=== PATIENT | male | born 1980 | race Caucasian/White ===

== ENCOUNTER 2017-07-18 06:27 | Emergency (ER) | payer BC ==
[2017-07-18 06:38] VITALS: BP 145/102
[2017-07-18] MEDS ORDERED: Orphenadrine 100 MG Tab.ER PO STA (07:08)
[2017-07-18] MEDS ORDERED: Naproxen 500 MG Tab PO ONE (07:08)
--- NOTE | 2017-07-18 07:15 | EDM.PDOC ---
ED HPI GENERAL MEDICAL PROBLEM - General Chief Complaint: Back Pain or Injury Stated Complaint: BACK PAIN Time Seen by Provider: 07/18/17 06:42 Source of Information: Reports: Patient, RN Notes Reviewed History Limitations: Reports: No Limitations - History of Present Illness INITIAL COMMENTS - FREE TEXT/NARRATIVE: The patient states that he developed lower left back pain Monday afternoon, 07/16, after he pulled on a tractor, attempting to get it off a trailer. The pain is felt in his lower left back, his left buttock, and down the posterior aspect of his left thigh. He only feels the pain when he is sitting, turning over in bed, or walking. He has chronic left toe numbness, but no new tingling or numbness. He states that he saw a chiropractor yesterday afternoon, who performed an adjustment, but it did not help. The patient has a history of cervical disc disease, but no prior lower back injury. The patient's PCP is Dr. Cross, who has not been notified of this event. Patient has an appointment to see Dr. Cross on 07/21/2017. Lower Back Pain Score (Numeric/FACES): 10 - Related Data Allergies Allergy/AdvReac Type Severity Reaction Status Date / Time Penicillins Allergy Anaphylactic Verified 03/28/15 21:04 Shock Tetanus Vaccines and Toxoid Allergy Anaphylactic Verified 03/28/15 21:04 [Tetanus Vaccines & Toxoid] Shock Home Meds: Home Meds Naproxen 500 mg PO Q12H PRN #20 tablet 07/18/17 [Rx] Orphenadrine [Norflex] 1 tab PO Q12H #20 tab.er 07/18/17 [Rx] traMADol [Ultram] 1 tab PO DAILY PRN 07/18/17 [History] Past Medical History Musculoskeletal History: Reports: Other (See Below) (Cervical disc disease) - Past Surgical History HEENT Surgical History: Reports: Oral Surgery (Dental extractions) Neurological Surgical History: Reports: C-Spine (ACDF) Musculoskeletal Surgical History: Reports: Other (See Below) (Right hand reconstructive surgery) Social & Family History - Tobacco Use Smoking Status *Q: Heavy Tobacco Smoker Years of Tobacco use: 26 Packs/Tins Daily: 2 - Caffeine Use Caffeine Use: Reports: Coffee - Alcohol Use Alcohol Use History: Yes Alcohol Use Frequency: Daily - Recreational Drug Use Recreational Drug Use: No - Living Situation & Occupation Living situation: Reports: , with Spouse, with Family (3 kids) Occupation: Employed ([employer]) ED ROS GENERAL - Review of Systems Review Of Systems: See Below Constitutional: Reports: No Symptoms HEENT: Reports: No Symptoms Respiratory: Reports: No Symptoms Cardiovascular: Reports: No Symptoms Endocrine: Reports: No Symptoms GI/Abdominal: Reports: No Symptoms : Reports: No Symptoms Musculoskeletal: Reports: No Symptoms Skin: Reports: No Symptoms Neurological: Reports: No Symptoms Psychiatric: Reports: No Symptoms Hematologic/Lymphatic: Reports: No Symptoms Immunologic: Reports: No Symptoms ED EXAM,LOWER BACK PAIN/INJURY - Physical Exam Exam: See Below Exam Limited By: No Limitations General Appearance: Alert, WD/WN, No Apparent Distress Eye Exam: Bilateral Eye: Normal Inspection Ears: Normal External Exam, Hearing Grossly Normal Nose: Normal Inspection, No Blood Throat/Mouth: Normal Inspection, Normal Lips, Normal Voice, No Airway Compromise Head: Atraumatic, Normocephalic Neck: Normal Inspection, Full Range of Motion Respiratory/Chest: No Respiratory Distress, No Accessory Muscle Use, Rhonchi ( diffuse "smoker's lungs") Cardiovascular: Normal Peripheral Pulses, Regular Rate, Rhythm, No Gallop, No JVD, No Murmur, No Rub GI/Abdominal: Normal Bowel Sounds, Soft, Non-Tender, No Organomegaly, No Distention, No Abnormal Bruit, No Mass (Male) Exam: Deferred Rectal (Males) Exam: Deferred Back Exam: Normal Inspection, Other (No visible abnormality to the patient's lower back, such as swelling, erythema, ecchymosis, or abrasion. No tenderness to palpation of the spinous processes. Minimal tenderness to palpation of the left sacroiliac area. No appreciable muscle spasm to the area. The patient is able to flex the spine to 45, extend to 10. He is able to tilt to the left to 10, to the right 20. He is able to twist to the left to 5, to the right 45. Normal unilateral knee bend. Straight leg raise to 30 on the left before causing lower back discomfort, without radiculopathy. Straight leg raise to 45 on the right before causing lower back strain without radiculopathy.) Extremities: Normal Inspection, Normal Range of Motion, No Pedal Edema, Normal Capillary Refill Neurological: Alert, No Motor/Sensory Deficits, Oriented x 3 Psychiatric: Normal Affect Skin Exam: Warm, Dry, Intact, Normal Color, No Rash Course - Vital Signs Last Recorded V/S: Last Vital Signs Temp 36.8 C 07/18/17 06:34 Pulse 92 07/18/17 06:34 Resp 18 07/18/17 06:34 BP 145/102 H 07/18/17 06:34 Pulse Ox 100 07/18/17 06:34 - Orders/Labs/Meds Meds: Medications Discontinued Medications Generic Name Dose Route Start Last Admin Trade Name Freq PRN Reason Stop Dose Admin Naproxen 500 mg 07/18/17 07:08 07/18/17 07:15 Naprosyn PO 07/18/17 07:09 500 mg ONETIME ONE Administration Orphenadrine Citrate 100 mg 07/18/17 07:08 07/18/17 07:15 Norflex PO 07/18/17 07:09 100 mg ONETIME STA Administration - Re-Assessments/Exams Free Text/Narrative Re-Assessment/Exam: 07/18/17 07:05 The patient's examination is not consistent with a herniated intervertebral disc. Is more likely that the patient has strained a lower back muscle, which may be causing some local nerve irritation. Am therefore not recommending steroids, instead, I am recommending a nonsteroidal, such as naproxen, and a muscle relaxant, such as Norflex. I am recommending that he stay active, swimming if possible. The patient is requesting a note for work, which I will extend through Monday , 07/22/2017. The patient will be following up with Dr. Cross on Monday, 07/21. Departure - Departure Time of Disposition: 07:09 Disposition: Home, Self-Care 01 Condition: Good Clinical Impression: Low back pain - Discharge Information Prescriptions: Naproxen 500 mg PO Q12H PRN #20 tablet PRN Reason: Pain Orphenadrine [Norflex] 1 tab PO Q12H #20 tab.er Instructions: Back Pain, Adult, [id number] Referrals: Hammad Cross MD [Primary Care Provider] - Forms: ED Department Discharge, ED Return to Work/School Form Additional Instructions: You were seen in the emergency room for low back pain going down your left thigh. On examination, it appears to have strained your lower back, which may be irritating some nerves. You have been started on the anti-inflammatory medicine naproxen. Take one tablet every 12 hours, with food, as prescribed. You have been started on the muscle relaxant Norflex. Take one tablet every 12 hours, as prescribed. It is important that you stay active. Swimming is best, but if you cannot swim, walking is good. Try to avoid flexing and twisting your spine. Follow-up with Dr. Cross on 07/21/2017, as previously scheduled. If any other problems, please do not hesitate to return to the ER.
== END 2017-07-18 07:34 | disposition home or self-care (01) ==
LOC: JD.ED 06:27
DX: M54.5 Low back pain (principal); F17.210 Nicotine dependence, cigarettes, uncomplicated; Z98.890 Other specified postprocedural states; Z79.899 Other long term (current) drug therapy; Z88.0 Allergy status to penicillin; Z88.7 Allergy status to serum and vaccine
CPT/HCPCS: 99283; A9270

== ENCOUNTER 2021-06-04 05:59 | Emergency (ER) | payer BC ==
[2021-06-04] MEDS ORDERED: Ondansetron 4 MG/2 ML SDV IVPUSH ONE ×2 (06:42→09:25)
[2021-06-04] MEDS ORDERED: HYDROmorphone 1 MG/ML Syringe IVPUSH STA (06:42)
[2021-06-04] MEDS ORDERED: Sodium Chloride 0.9% 1,000 ML IV SCH (06:45)
--- NOTE | 2021-06-04 06:54 | EDM.PDOC ---
<Jim Zuñiga - Last Filed: 06/04/21 07:45> ED HPI GENERAL MEDICAL PROBLEM - General Chief Complaint: Gastrointestinal Problem Stated Complaint: UPPER ABDOMINAL PAIN/SOB Time Seen by Provider: 06/04/21 06:14 Source of Information: Reports: Patient, Family () History Limitations: Reports: No Limitations - History of Present Illness INITIAL COMMENTS - FREE TEXT/NARRATIVE: Mr. Abdi is a very pleasant 41-year-old gentleman who now presents the ED stating that he was woken from sleep around 21:00 last night with sudden-onset sharp/stabbing pain felt in his left upper quadrant, along with nausea and vomiting. The pain does not radiate. He states that the pain waxes and wanes. He has not identified any modifiers other than vomiting, which gives him some temporary relief of his symptoms. The patient states that his last bowel movement was watery diarrhea around 4:00 this morning. He states that he has not been passing gas. No recent fever or urinary symptoms. The patient states that he has not taken any [id number] or home remedies since the onset of his symptoms. No prior similar symptoms. The patient acknowledges that he drinks 8-10 beers a day, and smokes marijuana on a near-daily basis. He has also smoked 2 packs of cigarettes a day since he was 11 years old. Here in the ED this morning, the patient's initial BP is found to be elevated at 170/111, otherwise, he is hemodynamically stable, afebrile, saturating 100% on room air. He appears to be somewhat uncomfortable and anxious, but in no acute distress. Prior to last night, the patient denies having a recent fever, chills, sore throat, ear pain, nasal or sinus congestion, cough, dyspnea, chest pain, palpitations, nausea, vomiting, constipation, diarrhea, abdominal pain, urinary symptoms, recent weight gain or weight loss, recent bloody bowel movements or black bowel movements, recent joint aches, headaches, or rashes. The patient does not have a PCP. He has not received a COVID vaccination. Epigastric Pain Score (Numeric/FACES): 8 - Related Data Allergies Allergy/AdvReac Type Severity Reaction Status Date / Time bee venom protein (honey bee) Allergy Anaphylactic Verified 06/04/21 06:14 Shock Penicillins Allergy Anaphylactic Verified 03/28/15 21:04 Shock Tetanus Vaccines and Toxoid Allergy Anaphylactic Verified 03/28/15 21:04 [Tetanus Vaccines & Toxoid] Shock Home Meds: Home Meds Ondansetron [Zofran ODT] 4 mg PO Q6H PRN #7 tab.dis 06/04/21 [Rx] Past Medical History Psychiatric History: Reports: Addiction (alcohol, opiates) - Past Surgical History HEENT Surgical History: Reports: Oral Surgery (dental extractions) Neurological Surgical History: Reports: C-Spine (ACDF) Musculoskeletal Surgical History: Reports: Other (See Below) (Right hand reconstruction) Social & Family History - Tobacco Use Tobacco Use Status *Q: Heavy Tobacco User Years of Tobacco use: 30 Packs/Tins Daily: 2 Tobacco Use Comment: Started smoking 1990 - Caffeine Use Caffeine Use: Reports: Coffee - Alcohol Use Alcohol Use History: Yes Days Per Week of Alcohol Use: 7 Number of Drinks Per Day: 10 Total Drinks Per Week: 70 Alcohol Use Frequency: Daily - Recreational Drug Use Recreational Drug Use: Yes Drug Use in Last 12 Months: Yes Recreational Drug Type: Reports: Marijuana/Hashish (smokes daily or near-daily), Other (see below) (Opiates) - Living Situation & Occupation Living situation: Reports: , with Spouse, with Family (2 kids) 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 ED EXAM, GI/ABD - Physical Exam Exam: See Below Exam Limited By: No Limitations General Appearance: Alert, WD/WN, No Apparent Distress Eyes: Bilateral: Normal Appearance, EOMI Ears: Normal External Exam, Hearing Grossly Normal Nose: Normal Inspection Throat/Mouth: Normal Inspection, Normal Lips, Normal Voice, No Airway Compromise Head: Atraumatic, Normocephalic Neck: Normal Inspection, Full Range of Motion Respiratory/Chest: No Respiratory Distress, Lungs Clear, Normal Breath Sounds, No Accessory Muscle Use Cardiovascular: Normal Peripheral Pulses, Regular Rate, Rhythm, No Edema, No Gallop, No JVD, No Murmur, No Rub GI/Abdominal Exam: Normal Bowel Sounds, Soft, No Organomegaly, No Distention, No Abnormal Bruit, No Mass, Tender (Lightly in the right upper quadrant, predominantly in the epigastrium and left upper quadrant. Nontender elsewhere.) Back Exam: Normal Inspection, Full Range of Motion. No: CVA Tenderness (L), CVA Tenderness (R) Extremities: Normal Inspection, Normal Range of Motion, No Pedal Edema, Normal Capillary Refill Neurological: Alert, Oriented, Normal Cognition, No Motor/Sensory Deficits Psychiatric: Normal Affect Skin Exam: Warm, Dry, Intact, Normal Color, No Rash Course - Re-Assessments/Exams Free Text/Narrative Re-Assessment/Exam: 06/04/21 06:44 As above, the patient was woken from sleep around 21:00 last night with sharp/stabbing left upper quadrant abdominal pain that has been waxing and waning since. He has associated nausea, and his pain is at least temporarily improved with vomiting. He states that he had some watery diarrhea around 4:00 this morning, but that he has not had any flatus. No recent fever or urinary symptoms. On examination, the patient has slight right upper quadrant tenderness, with the majority of his tenderness felt in the epigastric and left upper quadrant area. Essentially nontender elsewhere. Normoactive bowel sounds. My suspicion for pancreatitis is very high, particularly given his heavy drinking, although the differential diagnosis includes a small bowel obstruction, a perforated gastric ulcer, gastritis, or even a very unusual presentation of a kidney stone. I have ordered a work-up that includes several blood tests, a swab for the SARS-CoV-2 virus (in case the patient needs to be admitted or transferred), and a CT of his abdomen and pelvis with oral and IV contrast. In the meantime, the patient will be given some IV Dilaudid, IV Zofran, and IV fluid. 06/04/21 06:58 Notified by Qi MCGEE that the patient would prefer to not have Dilaudid, since he apparently has a history of opiate abuse. He prefers Toradol. He denied drug use other than marijuana when I directly asked him. Nevertheless, I have canceled the IV Dilaudid and ordered Toradol instead. 06/04/21 07:45 The patient's CBC is remarkable for an H/H mildly elevated at 18.4/51.9, with the remainder of his CBC being unremarkable. His CMP is remarkable for slight hyperglycemia of 119, with the remainder of his CMP being unremarkable. His lipase level is within normal limits at 105. Results of his swab for the SARS-CoV-[address] scan of his abdomen and pelvis are still pending. Case discussed with Dr. Sánchez, and care of the patient turned over to him at this time, for change of shift. Departure - Departure Disposition: Home, Self-Care 01 Clinical Impression: Vomiting Abdominal pain Qualifiers: Abdominal location: upper abdomen, unspecified Qualified Code(s): R10.10 - Upper abdominal pain, unspecified - Discharge Information Prescriptions: Ondansetron [Zofran ODT] 4 mg PO Q6H PRN #7 tab.dis PRN Reason: Nausea/Vomiting Instructions: Nausea and Vomiting, Adult, [id number], Abdominal Pain, Adult, [id number] Referrals: PCP,None [Primary Care Provider] - Forms: ED Department Discharge Additional Instructions: Clear liquids until this evening, than very careful bland diet, small amounts of food only at a time as tolerated. Zofran if needed for further nausea or vomiting. Prescription has been sent to [facility] located at the [facility] grocery store. Sepsis Event Note (ED) - Evaluation Sepsis Screening Result: No Definite Risk <Mao Sánchez - Last Filed: 06/04/21 11:44> Course - Vital Signs Last Recorded V/S: Last Vital Signs Temp 98.1 F 06/04/21 10:13 Pulse 59 L 06/04/21 11:30 Resp 16 06/04/21 11:30 BP 162/99 H 06/04/21 11:30 Pulse Ox 98 06/04/21 11:30 - Orders/Labs/Meds Orders: Active Orders 24 hr Category Date Time Status Sodium Chloride 0.9% [Normal Saline] 1,000 ml Med 06/04/21 06:45 Active IV ASDIRECTED Sodium Chloride 0.9% [Saline Flush] Med 06/04/21 07:29 Active 10 ml FLUSH ONETIME PRN Medication Orders Sodium Chloride (Normal Saline) 1,000 mls @ 150 mls/hr IV ASDIRECTED PREETI Last Infusion: 06/04/21 09:35 Dose: 999 mls/hr Documented by: Admin: 06/04/21 06:54 Dose: 150 mls/hr Documented by: TARAH Sodium Chloride (Sodium Chloride 0.9% 10 Ml Syringe) 10 ml FLUSH ONETIME PRN PRN Reason: IV FLUSH Last Admin: 06/04/21 08:02 Dose: 10 ml Documented by: BLANKA Labs: Laboratory Tests 06/04/21 06/04/21 Range/Units 06:50 06:50 WBC 8.16 (4.23-9.07) K/mm3 RBC 5.46 (4.63-6.08) M/mm3 Hgb 18.4 H (13.7-17.5) gm/dl Hct 51.9 H (40.1-51.0) % MCV 95.1 H (79.0-92.2) fl MCH 33.7 H (25.7-32.2) pg MCHC 35.5 (32.2-35.5) g/dl RDW Std Deviation 44.0 H (35.1-43.9) fL Plt Count 271 (163-337) K/mm3 MPV 9.0 L (9.4-12.3) fl Neutrophils % (Manual) 69 H (40-60) % Band Neutrophils % 1 (0-10) % Lymphocytes % (Manual) 18 L (20-40) % Atypical Lymphs % 0 % Monocytes % (Manual) 11 H (2-10) % Eosinophils % (Manual) 0 L (0.8-7.0) % Basophils % (Manual) 1 (0.2-1.2) Platelet Estimate Adequate Plt Morphology Comment Normal RBC Morph Comment Normal Sodium 143 (136-145) mEq/L Potassium 3.2 L (3.5-5.1) mEq/L Chloride 100 (98-107) mEq/L Carbon Dioxide 32 (21-32) mEq/L Anion Gap 14.2 (5-15) BUN 11 (7-18) mg/dL Creatinine 0.8 (0.7-1.3) mg/dL Est Cr Clr Drug Dosing 118.75 mL/min Estimated GFR (MDRD) > 60 (>60) mL/min BUN/Creatinine Ratio 13.8 L (14-18) Glucose 119 H (70-99) mg/dL Calcium 9.3 (8.5-10.1) mg/dL Total Bilirubin 0.8 (0.2-1.0) mg/dL AST 27 (15-37) U/L ALT 35 (16-63) U/L Alkaline Phosphatase 75 (46-116) U/L Total Protein 8.0 (6.4-8.2) g/dl Albumin 4.4 (3.4-5.0) g/dl Globulin 3.6 gm/dL Albumin/Globulin Ratio 1.2 (1-2) Lipase 105 (73-393) U/L Meds: Medications Generic Name Dose Route Start Last Admin Trade Name Treyq PRN Reason Stop Dose Admin Sodium Chloride 1,000 mls @ 150 mls/hr 06/04/21 06:45 06/04/21 09:35 Normal Saline IV 999 mls/hr ASDIRECTED PREETI Infusion Sodium Chloride 10 ml 06/04/21 07:29 06/04/21 08:02 Sodium Chloride 0.9% 10 Ml Syringe FLUSH 10 ml ONETIME PRN Administration IV FLUSH Discontinued Medications Generic Name Dose Route Start Last Admin Trade Name Moody PRN Reason Stop Dose Admin Diatrizoate Meglum/Diatrizoate Sod 120 ml 06/04/21 07:29 06/04/21 08:03 Diatrizoate Meglumine/Diatrizoate Sodium 37% 120 Ml Bottle PO 06/04/21 07:30 30 ml ONETIME ONE Administration Hydromorphone HCl 1 mg 06/04/21 06:42 06/04/21 07:01 Hydromorphone 1 Mg/Ml Syringe IVPUSH 06/04/21 06:43 Not Given ONETIME STA Hydromorphone HCl 1 mg 06/04/21 10:34 06/04/21 10:38 Hydromorphone 1 Mg/Ml Syringe IVPUSH 06/04/21 10:35 1 mg ONETIME ONE Administration Promethazine HCl 12.5 mg/ 50.5 mls @ 100 mls/hr 06/04/21 10:34 06/04/21 10:49 Sodium Chloride IV 06/04/21 11:04 100 mls/hr ONETIME ONE Administration Iopamidol 100 ml 06/04/21 07:29 06/04/21 08:02 Iopamidol 612 Mg/Ml 100 Ml Bottle IVPUSH 06/04/21 07:30 100 ml ONETIME ONE Administration Ketorolac Tromethamine 30 mg 06/04/21 06:58 06/04/21 07:10 Ketorolac 30 Mg/Ml Sdv IVPUSH 06/04/21 06:59 30 mg ONETIME STA Administration Metoclopramide HCl 5 mg 06/04/21 07:44 06/04/21 07:50 Metoclopramide 10 Mg/2 Ml Sdv IVPUSH 06/04/21 07:45 5 mg ONETIME ONE Administration Metoclopramide HCl 5 mg 06/04/21 10:05 06/04/21 10:15 Metoclopramide 10 Mg/2 Ml Sdv IVPUSH 06/04/21 10:06 Not Given ONETIME ONE Metoclopramide HCl 5 mg 06/04/21 10:05 06/04/21 10:11 Metoclopramide 10 Mg/2 Ml Sdv IVPUSH 06/04/21 10:06 5 mg ONETIME ONE Administration Ondansetron HCl 4 mg 06/04/21 06:42 06/04/21 06:54 Ondansetron 4 Mg/2 Ml Sdv IVPUSH 06/04/21 06:43 4 mg ONETIME ONE Administration Ondansetron HCl 4 mg 06/04/21 09:25 06/04/21 09:31 Ondansetron 4 Mg/2 Ml Sdv IVPUSH 06/04/21 09:26 4 mg ONETIME ONE Administration - Re-Assessments/Exams Free Text/Narrative Re-Assessment/Exam: 06/04/21 09:35. Have assumed care from Flynn Zuñiga at change of shift. I agree with his hx and exam as documented. CT of abd does not show any acute upper abd pathology. There was no definite contrast L distal ureter but no evidence of obstruction. See Radiology report for details. I did verify with patient that his pain is upper abd, no lower abd, pelvic or L groin to suggest a stone problem. Pt's worry was to make sure he does not have pancreatitis. His lipase was normal. 10:25. Having more nausea and pain after getting up to the bathroom. Will give the 1 mg dilaudid not given before. Have given reglan IV, will give a 12.5 mg dose phenergan IV. Discharge instr. as documented. Departure - Departure Time of Disposition: 10:45 Condition: Fair Sepsis Event Note (ED) - Focused Exam Vital Signs: Vital Signs Temp Pulse Resp BP Pulse Ox 06/04/21 11:30 59 L 16 162/99 H 98 06/04/21 10:13 98.1 F 82 16 146/90 H 97 06/04/21 09:34 97.9 F 70 16 154/94 H 95 06/04/21 06:09 96.9 F 71 17 170/111 H 100
[2021-06-04] MEDS ORDERED: Ketorolac 30 MG/ML SDV IVPUSH STA (06:58)
[2021-06-04] MEDS ORDERED: Iopamidol 612 MG/ML 100 ML Bottle IVPUSH ONE (07:29)
[2021-06-04] MEDS ORDERED: Diatrizoate Meglumine/Diatrizoate Sodium 37% 120 ML Bottle PO ONE (07:29)
[2021-06-04] MEDS ORDERED: Sodium Chloride 0.9% 10 ML Syringe FLUSH PRN (07:29)
[2021-06-04] MEDS ORDERED: Metoclopramide 10 MG/2 ML SDV IVPUSH ONE ×3 (07:44→10:05)
--- NOTE | 2021-06-04 08:36 | CT ---
Addendum: Additional delayed images were obtained through the kidneys. Contrast is seen within the distal left ureter. Ureter is located very close to the calcifications thought to represent ureteral calculi but these calcifications are not located within the ureter. No ureteral dilatation is seen. Contrast is noted within the bladder. --- Addendum1 above dictated on [06/04/2021 09:34] by [Javi Connell, Mick Bradford] --- --- Addendum1 above signed on [06/04/2021 09:39] by [Javi Connell, Mick Bradford] --- --- Original report below dictated on [06/04/2021 08:31] by [Javi Connell, Mick Bradford] --- --- Original report below signed on [06/04/2021 08:34] by [Javi Connell, Mick Bradford] --- CT abdomen and pelvis Technique: Multiple axial sections were obtained from above the dome of the diaphragm inferiorly through the pubic symphysis. Intravenous and oral contrast were utilized. Delayed images were obtained through the bladder. Reconstructed coronal and sagittal images were also obtained. Comparison: No prior CT abdomen or pelvis study is available. Findings: Visualized lung bases show nothing acute. Liver contains no focal parenchymal abnormality. Gallbladder contains no calcified gallstones. Spleen size is normal. Several nodules are seen medial to the spleen compatible with accessory splenic tissue. Adrenal glands show no nodule. Pancreas shows no discrete abnormality. Kidneys show symmetric contrast enhancement without hydronephrosis or mass. Questionable calcification is noted within the distal left ureter which does not cause any ureteral dilatation. Delayed images show contrast within the right ureter and bladder. No definite contrast is seen within the distal left ureter. Abdominal aorta shows mild atherosclerotic change seen with no aneurysm. No retroperitoneal adenopathy or mesenteric abnormalities are seen. No pelvic mass or adenopathy is seen. Appendix is seen which is normal in size. No free fluid or inflammatory change is noted. Bone window settings were reviewed which show slight degenerative change at L5-S1. No acute osseous abnormality is appreciated. Impression: 1. Questionable calcification within the distal left ureter. Delayed images show no contrast within the distal left ureter. No ureteral dilatation is seen. Recommend delayed CT images of the abdomen and pelvis to further evaluate. 2. Other portions of the CT abdomen and pelvis study appear unremarkable. Diagnostic code #3 --- Addendum1 signed ---
[2021-06-04] MEDS ORDERED: Promethazine 12.5 MG in Sodium Chloride 0.9% 50 ML IV ONE (10:34)
[2021-06-04] MEDS ORDERED: HYDROmorphone 1 MG/ML Syringe IVPUSH ONE (10:34)
[2021-06-04 11:35] VITALS: BP 162/99; PULSE 59
== END 2021-06-04 11:30 | disposition home or self-care (01) ==
LOC: JD.ED 05:59
DX: R10.11 Right upper quadrant pain (principal); R10.12 Left upper quadrant pain; R10.811 Right upper quadrant abdominal tenderness; R10.13 Epigastric pain; R11.2 Nausea with vomiting, unspecified; Z88.0 Allergy status to penicillin; Z91.030 Bee allergy status; Z88.7 Allergy status to serum and vaccine; Z72.0 Tobacco use
CPT/HCPCS: 36415; 74177; 80053; 83690; 85007; 85027; 96365; 96375; 96376; 99284; J1170; J1885; J2405; J2550; J2765; J7030; Q9963; Q9967

== ENCOUNTER 2024-02-13 06:50 | Emergency (ER) | payer SELFPAY ==
[2024-02-13 07:18] VITALS: BP 147/77; PULSE 90
== END 2024-02-13 08:01 | disposition home or self-care (01) ==
LOC: JD.ED 06:50
DX: M75.101 Unspecified rotator cuff tear or rupture of right shoulder, not specified as traumatic (principal); Z91.030 Bee allergy status; Z88.0 Allergy status to penicillin; Z88.7 Allergy status to serum and vaccine
CPT/HCPCS: 99283

== ENCOUNTER 2024-03-25 12:36 | Emergency (ER) | payer SELFPAY ==
[2024-03-25] MEDS: Acetaminophen 325 MG Tab PO ONE (13:18)
[2024-03-25] MEDS: Ibuprofen 800 MG Tab PO ONE (13:19)
[2024-03-25] MEDS: Acetaminophen/HYDROcodone 325-5 MG Tab PO ONE (14:30)
[2024-03-25 15:38] VITALS: BP 133/79; PULSE 65
== END 2024-03-25 14:35 | disposition home or self-care (01) ==
LOC: JD.ED 12:36
DX: S41.152A Open bite of left upper arm, initial encounter (principal); Z91.030 Bee allergy status; Z88.0 Allergy status to penicillin; Z88.7 Allergy status to serum and vaccine; W54.0XXA Bitten by dog, initial encounter
CPT/HCPCS: 73110; 99283; A9270